=== PATIENT | female | born 1980 | race African-American/Black ===

== ENCOUNTER 2016-05-17 11:59 | Emergency (ER) ==
[2016-05-17 12:05] VITALS: BP 152/89; TEMP 97.9; BMI 38.0
[2016-05-17 12:17] LABS: BILIRUBIN,URINE Negative (NEGATIVE); KETONES,URINE Negative (NEGATIVE); LEUKOCYTE ESTERASE ,URINE 2+ (NEGATIVE); NITRITE,URINE Negative (NEGATIVE); PROTEIN,URINE 1+ (NEGATIVE); URINE, BLOOD 3+ (NEGATIVE)
[2016-05-17 12:19] LABS: BASOPHILS # (AUTO) 0.1 K/uL (0-0.2); BASOPHILS % (AUTO) 0.3 % (0.0-3.0); EOSINOPHILS # (AUTO) 0.1 K/ul (0.0-0.7); EOSINOPHILS % (AUTO) 0.6 % (0.0-7.0); HEMATOCRIT 44.4 % (37.0-47.0); HEMOGLOBIN 15.4 g/dl (12.0-16.0); IMMATURE GRANULOCYTE % (AUTO) 0.4 % (0.0-5.0); LYMPHOCYTES # (AUTO) 3.1 K/uL (0.60-3.4); LYMPHOCYTES % (AUTO) 16.9 (10.0-50.0); MEAN CORPUSCULAR HEMOGLOBIN 30.2 pg (27.0-31.0); MEAN CORPUSCULAR HGB CONC 34.7 (31.8-35.4); MEAN CORPUSCULAR VOLUME 87.1 fl (81.0-99.0); MONOCYTES # (AUTO) 1.4 K/uL (0.4-2.0); MONOCYTES % (AUTO) 7.6 (0-10); NEUTROPHILS # (AUTO) 13.4 K/ul (2.0-6.9); NEUTROPHILS % (AUTO) 74.2; PLATELET COUNT 257 10^3/uL (140-440); WHITE BLOOD COUNT 18.08 K/ul (4.6-10.2)
[2016-05-17 12:20] LABS: ADD URINE MICROSCOPIC YES
[2016-05-17 12:21] LABS: BACTERIA,URINE 1+ (NOT PRESENT)
[2016-05-17 12:39] LABS: ALBUMIN 3.9 g/dL (3.4-5.0); ALBUMIN/GLOBULIN RATIO 1.3; ANION GAP 12.9; BILIRUBIN,TOTAL 0.46 mg/dL (0.00-1.20); BUN/CREATININE RATIO 8.53; CALCIUM 9.2 mg/dL (8.2-10.2); CREATININE 0.82 mg/dL (0.60-1.30); POTASSIUM 3.9 mmol/L (3.5-5.10); TOTAL PROTEIN 6.9 g/dL (6.4-8.2)
--- NOTE | 2016-05-17 12:55 | CT ---
EXAM: CT abdomen pelvis without contrast HISTORY: Flank pain and hematuria COMPARISON: None TECHNIQUE: Serial axial images of the abdomen pelvis were performed from the lung bases through the inferior pelvis without contrast. These were viewed in multiple planes. FINDINGS: There is a 0.5 cm nodule in the right middle lobe on image 16. The lungs are otherwise c lear. Evaluation is limited due to lack of contrast. The kidneys are normal in appearance with no hydrone phrosis or hydroureter. No stones are identified. The liver is unremarkable. The gallbladder is no rmal. The adrenal glands are normal. The spleen is normal. The pancreas is unremarkable. The sto mach is normal. The small bowel in the abdomen pelvis is normal. The colon is unremarkable. The appendix is normal . There is no inflammation in the right lower quadrant. The urinary bladder is partially distended . The uterus is unremarkable. There is trace nonspecific free fluid in the pelvis. Adnexal soft t issues are unremarkable. There is no lymphadenopathy or free air. The osseous structures are unrem arkable. IMPRESSION: 1. There is no hydronephrosis, obstructive uropathy or visualized renal stone. 2. The appendix is normal. 3. 0.5 cm nodule right middle lobe may be postinflammatory and dedicated CT chest is recommended in 3 months to further evaluate.
--- NOTE | 2016-05-17 13:00 | ED.PDOC ---
General ED Provider: Dr. DEVONTE CAMARGO-ER Chief Complaint: Urinary Problem Stated Complaint: it hurts to pee and i am peeing blood Time Seen by Physician: 12:58 Mode of Arrival: Walk-In Information Source: Patient Exam Limitations: No limitations Nursing and Triage Documentation Reviewed and Agree: Yes Complaint Exam - UTI Female Complaint/Exam Patient Complains of: Reports: Painful urination, Blood in urine Onset/Duration: 24hrs Symptoms Are: Still present Timing: Intermittent Initial Severity: Mild Current Severity: Mild Location of Pain: Reports: Suprapubic Associated Signs and Symptoms: Reports: Flank pain. Denies: Fever, Chills, Dyspareunia, Vaginal discharge Patient Rh Status: Unknown CVA Tenderness: No Suprapubic Tenderness: No Differential Diagnoses: Cystitis, Ureteral Calculus Review of Systems - Review Of Systems Constitutional: Reports: No symptoms Eyes: Reports: No symptoms Ears, Nose, Mouth, Throat: Reports: No symptoms Respiratory: Reports: No symptoms Cardiac: Reports: No symptoms GI: Reports: No symptoms : Reports: Dysuria, Frequency, Flank pain, Hematuria, Pain, Urgency Musculoskeletal: Reports: No symptoms Skin: Reports: No symptoms Neurological: Reports: No symptoms Endocrine: Reports: No symptoms Hematologic/Lymphatic: Reports: No symptoms All Other Systems: Reviewed and Negative Past Medical History - Past Medical History Endocrine: Reports: None Cardiovascular: Reports: None Respiratory: Reports: None Hematological: Reports: None Gastrointestinal: Reports: None Genitourinary: Reports: None Neuro/Psych: Reports: None Musculoskeletal: Reports: None Cancer: Reports: None Last Menstrual Period: hysterectomy - Surgical History General Surgical History: Reports: Hysterectomy, - Family History Family History: Reports: Unknown - Social History Smoking Status: Current every day smoker Hx Substance Use: No Alcohol Screening: None Lives: With family Physical Exam - Physical Exam Appearance: Well-appearing Pain Distress: Mild Eyes: RAFFAELE, EOMI, Conjunctiva clear ENT: Ears normal, Nose normal, Oropharynx normal Neck: Supple Respiratory: Airway patent, Breath sounds clear, Breath sounds equal, Respirations nonlabored Cardiovascular: RRR, Pulses normal, No rub, No murmur GI/: Soft, Nontender, No masses, Bowel sounds normal, No Organomegaly Musculoskeletal: Normal strength Skin: Warm Neurological: Sensation intact, Motor intact, Reflexes intact, Cranial nerves intact, Alert, Oriented Psychiatric: Affect appropriate, Mood appropriate Interpretation - Radiology Interpretation Radiology Interpretation By: Radiologist Radiology Results: Negative Exam Interpreted: CT Scan Critical Care Note - Critical Care Note Total Time (mins): 0 Course - Course Hematology/Chemistry: 05/17/16 12:05 05/17/16 12:05 Orders, Labs, Meds: Lab Review 05/17/16 05/17/16 12:05 12:12 WBC 18.08 H RBC 5.10 Hgb 15.4 Hct 44.4 MCV 87.1 MCH 30.2 MCHC 34.7 RDW Coeff of [place] 14.6 Plt Count 257 Immature Gran % (Auto) 0.4 Neut % (Auto) 74.2 Lymph % (Auto) 16.9 [place] % (Auto) 7.6 Eos % (Auto) 0.6 Baso % (Auto) 0.3 Immature Gran # (Auto) 0.1 Neut # 13.4 H Lymph # 3.1 [place] # 1.4 Eos # 0.1 Baso # 0.1 Sodium 140 Potassium 3.9 Chloride 104 Carbon Dioxide 27 Anion Gap 12.9 BUN 7 Creatinine 0.82 Estimated GFR (MDRD) 78.00 BUN/Creatinine Ratio 8.53 Glucose 82 Calcium 9.2 Total Bilirubin 0.46 AST 14 L ALT 17 Alkaline Phosphatase 64 Total Protein 6.9 Albumin 3.9 Globulin 3.0 Albumin/Globulin Ratio 1.30 Urine Color Yellow Urine Clarity Slightly Urine pH 6.0 Ur Specific [place] 1.025 Urine Protein 1+ Urine Glucose (UA) Negative Urine Ketones Negative Urine Blood 3+ Urine Nitrite Negative Urine Bilirubin Negative Urine Urobilinogen 0.2 Ur Leukocyte Esterase 2+ Urine Microscopic RBC 20-30 Urine Microscopic WBC 30-50 Ur Squamous Epith Cells 2-5 Ur Renal Epithelial Cell 0-2 Amorphous Sediment 1+ Urine Bacteria 1+ Orders Category Date Time Status CBC W/ AUTO DIFF Stat LAB 05/17/16 12:05 Completed COMPREHENSIVE METABOLIC PANEL Stat LAB 05/17/16 12:05 Completed URINALYSIS C & S IF INDICATED Stat LAB 05/17/16 12:12 Completed URINE CULTURE Stat LAB 05/17/16 12:[address] ABDOMEN/PELVIS WO CONTRAST Stat RADS 05/17/16 12:09 Completed Vital Signs: Temp Pulse Resp BP Pulse Ox 05/17/16 12:00 97.9 F 79 20 152/89 H 98 Departure - Departure Time of Disposition: 12:59 Disposition: HOME SELF-CARE Discharge Problem: Hemorrhagic cystitis, Lung nodule < 6cm on CT Instructions: Urinary Tract Infection in Women (ED) Condition: Good Pt referred to PMD for follow-up: Yes Additional Instructions: bactrim ds bid x 7days--f/u with pcp in 3 days for urine culture results and to arrange for lung nodule f/u Allergies/Adverse Reactions: Allergies No Known Allergies Allergy (Verified 05/17/16 12:07) Home Medications: Ambulatory Orders 1 [No Reported Medications] 05/17/16 Disposition Discussed With: Patient
== END 2016-05-17 13:00 | disposition home or self-care (01) ==
LOC: ED 11:59
DX: N30.91 Cystitis, unspecified with hematuria (principal); R91.1 Solitary pulmonary nodule; F17.210 Nicotine dependence, cigarettes, uncomplicated
CPT/HCPCS: 36415; 80053; 81001; 85025; 87086; 87186; 99283

== ENCOUNTER 2016-07-31 07:53 | Emergency (ER) ==
[2016-07-31 08:03] VITALS: TEMP 98.4; BMI 38.6
--- NOTE | 2016-07-31 08:30 | ED.PDOC ---
General ED Provider: Dr. GERALDINE MAK Chief Complaint: Hand Pain/Injury Stated Complaint: bilateral hand numbness and pain Time Seen by Physician: 08:00 (may present at all times ) Mode of Arrival: Walk-In Information Source: Patient Exam Limitations: No limitations Nursing and Triage Documentation Reviewed and Agree: Yes Musculoskeletal Complaint Exam - Hand/Wrist Complaint/Exam Location of Pain: Reports: Right, Left, Hand Mechanism of Injury: Reports: No known trauma Onset/Duration: weeks Symptoms Are: Still present Onset of Pain: Reports: Weeks Initial Severity: Moderate Location: Reports: Discrete Character: Reports: Aching Alleviating: Reports: Rest, Elevation Aggravating: Reports: Movement Associated Signs and Symptoms: Reports: Swelling Related History: Reports: Similar episode Dominant Hand: Right Related Surgical History: Reports: None Hand/Wrist Findings: Present: Swelling Differential Diagnoses: Carpal Tunnel Syndrome Review of Systems - Review Of Systems Constitutional: Reports: No symptoms Eyes: Reports: No symptoms Ears, Nose, Mouth, Throat: Reports: No symptoms Respiratory: Reports: No symptoms Cardiac: Reports: No symptoms GI: Reports: No symptoms : Reports: No symptoms Musculoskeletal: Reports: Other (hand numbness symetrical bilateral) Skin: Reports: No symptoms Neurological: Reports: No symptoms Endocrine: Reports: No symptoms Hematologic/Lymphatic: Reports: No symptoms All Other Systems: Reviewed and Negative Past Medical History - Past Medical History Endocrine: Reports: None Cardiovascular: Reports: None Respiratory: Reports: None Hematological: Reports: None Gastrointestinal: Reports: None Genitourinary: Reports: None Neuro/Psych: Reports: None Musculoskeletal: Reports: None Cancer: Reports: None Last Menstrual Period: N/A - Surgical History General Surgical History: Reports: Hysterectomy, - Family History Family History: Reports: Unknown - Social History Smoking Status: Current every day smoker, Light tobacco smoker Hx Substance Use: No Alcohol Screening: None - Immunizations Tetanus Shot up to Date: Yes Physical Exam - Physical Exam Appearance: Well-appearing, No pain distress, Well-nourished Eyes: RAFFAELE, EOMI, Conjunctiva clear ENT: Ears normal, Nose normal, Oropharynx normal Respiratory: Airway patent, Breath sounds clear, Breath sounds equal, Respirations nonlabored Cardiovascular: RRR, Pulses normal, No rub, No murmur GI/: Soft, Nontender, No masses, Bowel sounds normal, No Organomegaly Musculoskeletal: Limited ROM (pain in the distribution of median nerve no circualtory issues noted pulses strong), Edema Skin: Warm, Dry, Normal color Neurological: Sensation intact, Motor intact, Reflexes intact, Cranial nerves intact, Alert, Oriented Psychiatric: Affect appropriate, Mood appropriate Critical Care Note - Critical Care Note Total Time (mins): 0 Course - Course Vital Signs: Temp Pulse Resp BP Pulse Ox 07/31/16 07:54 98.4 F 73 20 145/104 H 97 Departure - Departure Time of Disposition: 08:30 Disposition: HOME SELF-CARE Discharge Problem: Bilateral carpal tunnel syndrome Instructions: Paresthesia (ED) Condition: Good Pt referred to PMD for follow-up: No Additional Instructions: Please call your Family Physician as soon as possible to schedule a follow-up appointment. you have carapl tunnel syndrome . you must see clinic .[facility] Allergies/Adverse Reactions: Allergies No Known Allergies Allergy (Verified 07/31/16 08:03) Home Medications: Ambulatory Orders 1 [No Reported Medications] 05/17/16
[2016-07-31 08:35] VITALS: BP 140/93
== END 2016-07-31 08:47 | disposition home or self-care (01) ==
LOC: ED 07:53
DX: G56.03 Carpal tunnel syndrome, bilateral upper limbs (principal); F17.210 Nicotine dependence, cigarettes, uncomplicated
CPT/HCPCS: 99282

== ENCOUNTER 2016-08-29 08:13 | Emergency (ER) ==
[2016-08-29 08:20] VITALS: BP 134/96; TEMP 98; BMI 36.3
[2016-08-29] MEDS ORDERED: TETRACAINE 0.5% UNIT-DOSE OP STA (08:32)
[2016-08-29] MEDS ORDERED: FLUORETS OP STA (08:32)
[2016-08-29] MEDS ORDERED: EYE-STREAM OP STA (08:32)
--- NOTE | 2016-08-29 08:37 | ED.PDOC ---
General ED Provider: Dr. KEIRA MOSHER Chief Complaint: Eye Problem Stated Complaint: Patient states she started having Right eye pain this morning. Time Seen by Physician: 08:32 Mode of Arrival: Walk-In Information Source: Patient Exam Limitations: No limitations Nursing and Triage Documentation Reviewed and Agree: Yes EENT Complaint Exam - Eye Complaint/Exam Onset/Duration: 1 day Symptoms Are: Still present Timing: Constant Initial Severity: Moderate Current Severity: Severe Location: Right Character: Reports: Foreign body sensation Aggravating: Reports: Light, Blinking Alleviating: Reports: None Associated Signs and Symptoms: Reports: Photophobia, Clear drainage Related History: Denies: Similar episode, Foreign body, Trauma, Glaucoma, Environmental, Meds used, Drops used Eye Surgical History: Reports: None Penetrating Injury Risk Factors: None Globe Rupture Risk Factors: None Acute Glaucoma Risk Factors: Eye Inflammation Optic Artery Occlusion Risk Factors: None Visual Acuity Right Eye: 20/70 Visual Acuity Left Eye: 20/15 Visual Field: Normal Extraocular Movement: Normal Orbit Findings: Normal Globe Findings: Intact Conjunctival Findings: Red Corneal Findings: Clear Fluorescein Uptake: No Fundi: Normal Slit Lamp Used: No Differential Diagnoses: Conjunctivitis, Keratitis, Uveitis Review of Systems - Review Of Systems Constitutional: Reports: No symptoms Eyes: Reports: Blurred vision, Vision change, Drainage, Pain Ears, Nose, Mouth, Throat: Reports: No symptoms Respiratory: Reports: No symptoms Cardiac: Reports: No symptoms GI: Reports: No symptoms : Reports: No symptoms Musculoskeletal: Reports: No symptoms Skin: Reports: No symptoms Neurological: Reports: No symptoms Endocrine: Reports: No symptoms Hematologic/Lymphatic: Reports: No symptoms All Other Systems: Reviewed and Negative Past Medical History - Past Medical History Endocrine: Reports: None Cardiovascular: Reports: None Respiratory: Reports: None Hematological: Reports: None Gastrointestinal: Reports: None Genitourinary: Reports: None Neuro/Psych: Reports: None Musculoskeletal: Reports: None Cancer: Reports: None Last Menstrual Period: NA Other Pertinent Past Medical History: Fibroids. - Surgical History General Surgical History: Reports: Hysterectomy, - Family History Family History: Reports: Unknown - Social History Smoking Status: Current every day smoker, Light tobacco smoker Hx Substance Use: No Alcohol Screening: None - Immunizations Tetanus Shot up to Date: Yes Physical Exam - Physical Exam Appearance: Ill-appearing Ill-appearing: Moderate Pain Distress: Severe Eyes: Conjunctiva inflammed (lots of tearing on the right eye. ) Neck: Supple Respiratory: Airway patent, Breath sounds clear, Breath sounds equal, Respirations nonlabored Cardiovascular: RRR, Pulses normal, No rub, No murmur GI/: Soft, Nontender, No masses, Bowel sounds normal, No Organomegaly Musculoskeletal: Normal strength, ROM intact, No edema, No calf tenderness Skin: Warm, Dry, Normal color Neurological: Sensation intact, Motor intact, Reflexes intact, Cranial nerves intact, Alert, Oriented Psychiatric: Anxious Physician Notification - Case Discussed Physician Notified: Bipin Unger Nurse Time of Notification: 10:00 (Recommended Opthalmic steroids and follow up wednesday that the clinic. ) Critical Care Note - Critical Care Note Total Time (mins): 0 Course - Course Orders, Labs, Meds: Orders Category Date Time Status Balanced Salt Solution [Eye-Stream] MEDS 08/29/16 08:32 Stat 1 bottle OP ONCE STA Fluorescein Sodium [Fluorets] MEDS 08/29/16 08:32 Stat 1 strip OP ONCE STA Tetracaine HCl/Pf [Tetracaine 0.5% Unit-Dose] MEDS 08/29/16 08:32 Stat 2 drop OP ONCE STA Vital Signs: Temp Pulse Resp BP Pulse Ox 08/29/16 08:15 98 F 67 16 134/96 H 98 Departure - Departure Time of Disposition: 09:08 Disposition: HOME SELF-CARE Discharge Problem: Acute anterior uveitis of right eye, Conjunctivitis Instructions: Iritis (ED), Conjunctivitis (ED) Condition: Stable Pt referred to PMD for follow-up: Yes Additional Instructions: Follow up with your eye doctor in [address] [place] [address] Call early in the morning [phone] Return if worse Use eye drops to right eye every 4 times a day until follow up with ophthalmology Prescriptions: Hydrocodone/Acetaminophen [[place] 5-325 Tablet] 1 tab PO Q6HR PRN #12 tablet PRN Reason: PAIN Prednisolone Opth Susp [Pred Forte 1% Opth [place]] 1 drop OP QID #10 drops.susp Allergies/Adverse Reactions: Allergies No Known Allergies Allergy (Verified 08/29/16 08:15) Home Medications: Ambulatory Orders Hydrocodone/Acetaminophen [[place] 5-325 Tablet] 1 tab PO Q6HR PRN #12 tablet Prednisolone Opth Susp [Pred Forte 1% Opth [place]] 1 drop OP QID #10 drops.susp Disposition Discussed With: Patient
[2016-08-29] MEDS ORDERED: MORPHINE 4 MG/ML SYRINGE IM STA (08:52)
[2016-08-29] MEDS ORDERED: ZOFRAN 4 MG/2 ML IM STA (08:52)
== END 2016-08-29 10:20 | disposition home or self-care (01) ==
LOC: ED 08:13
DX: H20.00 Unspecified acute and subacute iridocyclitis (principal); H10.31 Unspecified acute conjunctivitis, right eye; F17.210 Nicotine dependence, cigarettes, uncomplicated
CPT/HCPCS: 96372; 99282

== ENCOUNTER 2016-11-12 13:04 | Emergency (ER) ==
[2016-11-12 13:28] VITALS: BP 145/102; TEMP 98.2; BMI 36.3
--- NOTE | 2016-11-12 13:46 | ED.PDOC ---
General ED Provider: Dr. DEVONTE CAMARGO-ER Chief Complaint: Hand Pain/Injury Stated Complaint: i have carpal tunnel proven by ncv--agnes blood sent me here for tx--i will see ortho in dec Time Seen by Physician: 13:10 Mode of Arrival: Walk-In Information Source: Patient Exam Limitations: No limitations Primary Care Provider: CARLOS BLOOD Nursing and Triage Documentation Reviewed and Agree: Yes Neurological Complaint Exam - Neurological Deficit Complaint/Exam Patient Complains of: Reports: Abnormal sensation Symptom Onset Unknown: No Onset: Gradual Symptoms Are: Still present Timing: Constant Episodes Lasting: Weeks Initial Severity: Mild Current Severity: Mild Location: Reports: RUE Character: Reports: Numbness, Tingling Aggravating: Reports: None Alleviating: Reports: None Associated Signs and Symptoms: Denies: Confusion, Agitation, Responsiveness, LOC , Headache, Fever, Nuchal rigidity, Recent trauma, Remote trauma, Recent illness Related History: Reports: Similar episode CVA Risk Factors: Denies: None, Diabetes, Hypertension, Smoking, PVD, CAD, Valvular Heart Disease SDH Risk Factors: Denies: None, Male, Seizures, Elderly, Recent trauma, Anticoagulant use, Coagulopathy Related Surgical History: Denies: None, Craniotomy, Tumor, Carotid Endarterectomy, Pacemaker, Artificial valve Carotid Bruit Present: No Glascow Coma Scale (see protocol): 15 Meningeal Signs Positive: No Focal Weakness: Present: None Focal Sensory Loss: Present: None Gait: Normal Nystagmus Present: No Gag Reflex Present: Yes [id number]: Normal Findings Romberg Test Positive: No Babinski Sign: Negative Right, Negative Left Heel to Toe Normal: Yes Signs of Trauma: No IV t-PA Prescribed: No Differential Diagnoses: Other Review of Systems - Review Of Systems Constitutional: Reports: No symptoms Eyes: Reports: No symptoms Ears, Nose, Mouth, Throat: Reports: No symptoms Respiratory: Reports: No symptoms Cardiac: Reports: No symptoms GI: Reports: No symptoms : Reports: No symptoms Musculoskeletal: Reports: No symptoms Skin: Reports: No symptoms Neurological: Reports: Tingling Endocrine: Reports: No symptoms Hematologic/Lymphatic: Reports: No symptoms All Other Systems: Reviewed and Negative Past Medical History - Past Medical History Previously Healthy: Yes Endocrine: Reports: None Cardiovascular: Reports: None Respiratory: Reports: None Hematological: Reports: None Gastrointestinal: Reports: None Genitourinary: Reports: None Neuro/Psych: Reports: None Musculoskeletal: Reports: None Cancer: Reports: None Last Menstrual Period: hysterectomy Other Pertinent Past Medical History: Fibroids. - Surgical History General Surgical History: Reports: Hysterectomy, - Family History Family History: Reports: Unknown - Social History Smoking Status: Current every day smoker, Light tobacco smoker Hx Substance Use: No Alcohol Screening: None Lives: With family Physical Exam - Physical Exam Appearance: Well-appearing, No pain distress, Well-nourished Eyes: RAFFAELE, EOMI, Conjunctiva clear ENT: Ears normal, Nose normal, Oropharynx normal Neck: Supple Respiratory: Airway patent, Breath sounds clear, Breath sounds equal, Respirations nonlabored Cardiovascular: RRR, Pulses normal, No rub, No murmur GI/: Soft, Nontender, No masses, Bowel sounds normal, No Organomegaly Musculoskeletal: Normal strength, ROM intact, No edema, No calf tenderness Skin: Warm, Dry, Normal color Neurological: Alert, Oriented (tinels and phalens sign neg) Psychiatric: Affect appropriate, Mood appropriate Critical Care Note - Critical Care Note Total Time (mins): 0 Course - Course Vital Signs: Temp Pulse Resp BP Pulse Ox 11/12/16 13:05 98.2 F 75 20 145/102 H 98 Departure - Departure Time of Disposition: 13:47 Disposition: HOME SELF-CARE Discharge Problem: Carpal tunnel syndrome of left wrist Instructions: Paresthesia (ED) Condition: Good Pt referred to PMD for follow-up: Yes Additional Instructions: medrol dose packl---f/u wtih pcp Allergies/Adverse Reactions: Allergies No Known Allergies Allergy (Verified 11/12/16 13:15) Home Medications: Ambulatory Orders 1 [No Reported Medications] 11/12/16 Disposition Discussed With: Patient
== END 2016-11-12 14:00 | disposition home or self-care (01) ==
LOC: ED 13:04
DX: G56.02 Carpal tunnel syndrome, left upper limb (principal); F17.210 Nicotine dependence, cigarettes, uncomplicated
CPT/HCPCS: 99282